=== PATIENT | male | born 1980 | race Caucasian/White ===

== ENCOUNTER → 2017-08-14 14:58 | Outpatient (CLI) | payer BC | END | disposition home or self-care (01) | LOC: D.MRI 14:58 | DX: M54.16 Radiculopathy, lumbar region (principal) ==

== ENCOUNTER → 2018-08-03 13:07 | Outpatient (CLI) | payer BC | END | disposition home or self-care (01) | LOC: D.MRI 07-21 16:00 | DX: M22.2X9 Patellofemoral disorders, unspecified knee (principal) ==